=== PATIENT | female | born 1940 | race Caucasian/White ===

== ENCOUNTER 2020-08-06 12:44 | Inpatient (IN) | payer MEDICARE ==
[~2020-08-06] VITALS: Ht 152.4 cm; Wt 45.4 kg
[~2020-08-06 12:44] MED LIST: ALLOPURINOL100 MG PO; CARBIDOPA-LEVO1 EACH PO; CRESTOR10 MG PO; FLAX SEED PO; K DUR10 MEQ PO; LEVOTHYROXINE50 MCG PO; LEXAPRO10 MG PO; METFORMIN HCL500 MG PO; METOLAZONE5 MG PO; OXYBUTYNIN CHLOR5 M1 PO; PANTOPRAZOLE SO40 MG PO; PROBIOTIC PO; QUETIAPINE FUMA25 MG PO; [UNRECOGNIZED DRUG - OTHER] PO
[2020-08-06 13:51] LABS: BASOPHILS # (AUTO) 0.1 (0.0-0.1); BASOPHILS % 0.9 % (0.0-1.0); EOSINOPHILS # (AUTO) 0.5 (0.0-0.4); EOSINOPHILS % 5.6 % (0.0-6.0); HEMATOCRIT 38.3 % (34.2-44.1); HEMOGLOBIN 12.7 g/dL (12.0-16.0); LYMPHOCYTES # (AUTO) 2.6 (1.0-3.2); LYMPHOCYTES % 28.9 % (18.0-39.1); MEAN CORPUSCULAR HEMOGLOBIN 30.3 pg (28-32); MEAN CORPUSCULAR HGB CONC 33.2 g/dL (31-35); MEAN CORPUSCULAR VOLUME 91.4 fL (81-99); MONOCYTES # (AUTO) 0.6 (0.2-0.8); MONOCYTES % 6.5 % (4.4-11.3); NEUTROPHILS # (AUTO) 5.1 (2.1-6.9); NEUTROPHILS % 57.8 % (38.7-80.0); PLATELET COUNT 319 x10e3/uL (140-360); RED BLOOD COUNT 4.19 x10e6/uL (3.6-5.1); RED CELL DISTRIBUTION WIDTH 13.2 % (11.7-14.4)
[2020-08-06 14:15] LABS: CREATINE KINASE MB 0.6 ng/mL (0-5.0)
[2020-08-06 14:17] LABS: CLARITY,URINE SL CLOUDY (CLEAR); COLOR,URINE YELLOW (YELLOW); KETONES,URINE TRACE (NEGATIVE); LEUKOCYTE ESTERASE ,URINE NEGATIVE (NEGATIVE); NITRITE,URINE POSITIVE (NEGATIVE); PROTEIN,URINE DIPSTICK 2+ (NEGATIVE); URINE UROBILINOGEN 0.2 mg/dL (0.2 - 1)
[2020-08-06 14:27] LABS: BACTERIA,URINE MANY /HPF; EPITHELIAL CELLS,URINE RARE /LPF
[2020-08-06 14:31] LABS: ALBUMIN/GLOBULIN RATIO 0.9 (0.8-2.0); ANION GAP 22.4 mmol/L (8-16); CALCIUM 7.8 mg/dL (8.4-10.2); CREATININE, SERUM 1.31 mg/dL (0.57-1.11); POTASSIUM 3.4 mmol/L (3.5-5.1)
[2020-08-06] MEDS ORDERED: LIDOCAINE 4% PATCH TP PRN (15:15)
[2020-08-06] MEDS ORDERED: SIMETHICONE 80 MG CHEW PO PRN (15:15)
[2020-08-06] MEDS ORDERED: DOCUSATE SODIUM 100 MG CAP PO PRN (15:15)
[2020-08-06] MEDS ORDERED: ALBUTEROL/IPRATROPIUM 3 ML NEB NEB PRN (15:15)
[2020-08-06] MEDS ORDERED: HYDRALAZINE HCL 20 MG/ML VIAL IV PRN (15:15)
[2020-08-06] MEDS ORDERED: DEXTROSE 50% SYRINGE 50 ML IV PRN (15:15)
[2020-08-06] MEDS ORDERED: GUAIFENESIN/CODEINE 10 ML CUP PO PRN (15:15)
[2020-08-06] MEDS ORDERED: CHLORASEPTIC SPRAY 177 ML BTL MM PRN (15:15)
[2020-08-06] MEDS ORDERED: DIPHENHYDRAMINE HCL 25 MG CAP PO PRN (15:15)
[2020-08-06] MEDS ORDERED: POLYETHYLENE GLYCOL 3350 17 GM PACK PO PRN (15:15)
[2020-08-06] MEDS: SODIUM CHLORIDE 0.9% 1000ML 1,000 ML IV SCH (15:57)
[2020-08-06] MEDS: KETOROLAC TROMETHAMINE 30 MG/ML VIAL IV SCH ×2 (15:57→21:48)
[2020-08-06] MEDS: CEFTRIAXONE SOD 1 GM/NS 50 ML 50 ML IV SCH (16:00)
[2020-08-06] MEDS: ENOXAPARIN SOD INJ 40 MG/0.4 ML SYR SC SCH (16:00)
[2020-08-06 17:17] VITALS: BP 119/53
[2020-08-06 17:22] VITALS: BP 119/53
[2020-08-06 19:38] LABS: CREATINE KINASE MB 0.5 ng/mL (0-5.0)
[2020-08-06 20:00] VITALS: BP 102/52
[2020-08-06 23:31] VITALS: BP 102/52
[2020-08-07] VITALS (8 sets, daily range): BP systolic 93–120; BP diastolic 47–67
[2020-08-07] MEDS: SODIUM CHLORIDE 0.9% 1000ML 1,000 ML IV SCH ×2 (01:56→12:32)
[2020-08-07] MEDS: ONDANSETRON HCL INJ 2MG/ML 2ML 2 MG/ML VIAL IV PRN (01:56)
[2020-08-07] MEDS: MELATONIN 5 MG TABLET PO PRN ×2 (01:57→22:37)
[2020-08-07] MEDS: ACETAMINOPHEN 325 MG TAB PO PRN ×2 (01:57→10:59)
[2020-08-07] MEDS: KETOROLAC TROMETHAMINE 30 MG/ML VIAL IV SCH (06:37)
[2020-08-07 08:04] LABS: BASOPHILS # (AUTO) 0.1 (0.0-0.1); BASOPHILS % 1.1 % (0.0-1.0); EOSINOPHILS # (AUTO) 0.7 (0.0-0.4); EOSINOPHILS % 9.6 % (0.0-6.0); HEMATOCRIT 31.9 % (34.2-44.1); HEMOGLOBIN 10.5 g/dL (12.0-16.0); LYMPHOCYTES # (AUTO) 2.3 (1.0-3.2); LYMPHOCYTES % 29.7 % (18.0-39.1); MEAN CORPUSCULAR HEMOGLOBIN 30.3 pg (28-32); MEAN CORPUSCULAR HGB CONC 32.9 g/dL (31-35); MEAN CORPUSCULAR VOLUME 91.9 fL (81-99); MONOCYTES # (AUTO) 0.6 (0.2-0.8); MONOCYTES % 7.7 % (4.4-11.3); NEUTROPHILS # (AUTO) 3.9 (2.1-6.9); NEUTROPHILS % 51.8 % (38.7-80.0); PLATELET COUNT 277 x10e3/uL (140-360); RED BLOOD COUNT 3.47 x10e6/uL (3.6-5.1); RED CELL DISTRIBUTION WIDTH 13.2 % (11.7-14.4)
[2020-08-07 08:23] LABS: ALBUMIN 2.4 g/dL (3.5-5.0); ALBUMIN/GLOBULIN RATIO 0.9 (0.8-2.0); ANION GAP 17.9 mmol/L (8-16); CREATININE, SERUM 1.14 mg/dL (0.57-1.11); PHOSPHORUS 3.4 MG/DL (2.3-4.7)
[2020-08-07 08:27] LABS: CALCIUM 6.9 mg/dL (8.4-10.2); POTASSIUM 2.9 mmol/L (3.5-5.1)
[2020-08-07] MEDS: POTASSIUM CHLORIDE 20 MEQ TAB CR PO PRN (08:33)
[2020-08-07] MEDS: PANTOPRAZOLE SOD 40 MG TABEC PO SCH (08:33)
[2020-08-07 08:35] LABS: CREATINE KINASE MB 0.5 ng/mL (0-5.0)
[2020-08-07 08:50] LABS: MAGNESIUM 0.8 MG/DL (1.3-2.1)
[2020-08-07 09:13] LABS: THYROID STIMULATING HORMONE 2.961 uIU/mL (0.350-4.940)
[2020-08-07] MEDS ORDERED: NEXIUM40 MG PO (10:36)
[2020-08-07] MEDS ORDERED: VACEPA PO (10:36)
[2020-08-07] MEDS ORDERED: ASPIRIN81 MG PO (10:36)
[2020-08-07] MEDS ORDERED: HYDROXYZINE HCL25 MG PO (10:36)
[2020-08-07] MEDS ORDERED: ONDANSETRON2 MG/1 ML SL (10:36)
[2020-08-07] MEDS ORDERED: PROMETHAZINE HC25 M1 PO (10:36)
[2020-08-07] MEDS ORDERED: ULTRAM50 MG PO (10:36)
[2020-08-07] MEDS ORDERED: MELATONIN3 M3 SL (10:36)
[2020-08-07] MEDS ORDERED: LINZESS145 MCG PO (10:36)
[2020-08-07] MEDS ORDERED: STOOL SOFTNER PO (10:36)
[2020-08-07] MEDS ORDERED: DICYCLOMINE HCL20 MG PO (10:36)
[2020-08-07 12:00] LABS: ANION GAP 19.7 mmol/L (8-16); CALCIUM 7.1 mg/dL (8.4-10.2); CREATININE, SERUM 1.17 mg/dL (0.57-1.11); POTASSIUM 3.7 mmol/L (3.5-5.1)
[2020-08-07 12:04] LABS: MAGNESIUM 0.8 MG/DL (1.3-2.1)
[2020-08-07] MEDS ORDERED: MAGNESIUM SULFATE 2GM/50ML 50 ML IV ONE ×2 (13:15→22:15)
[2020-08-07] MEDS: CARBIDOPA/LEVODOPA 10/100 TAB PO SCH ×3 (13:26→21:18)
[2020-08-07] MEDS: MEGACE 400MG/ 10ML CUP PO SCH (13:26)
[2020-08-07] MEDS: HYDROCODONE/APAP 5MG-325MG TAB PO PRN ×2 (13:58→22:37)
[2020-08-07] MEDS: CEFTRIAXONE SOD 1 GM/NS 50 ML 50 ML IV SCH (14:00)
[2020-08-07] MEDS: DICYCLOMINE HCL 20 MG TAB PO SCH ×2 (14:00→21:18)
[2020-08-07] MEDS: MULTIVITAMINS- 12 INJECTION 10 ML, FOLIC ACID MDV 5 MG, THIAMINE HCL INJ 100 MG in SODI... IV SCH (16:49)
[2020-08-07] MEDS: ENOXAPARIN SOD INJ 40 MG/0.4 ML SYR SC SCH (17:03)
[2020-08-07] MEDS: SIMVASTATIN 40 MG TAB PO SCH (21:18)
[2020-08-07] MEDS ORDERED: MAGNESIUM SULFATE 2GM/50ML 25 ML IV ONE (22:30)
[2020-08-08] VITALS (8 sets, daily range): BP systolic 103–131; BP diastolic 42–64
[2020-08-08 06:28] LABS: BASOPHILS # (AUTO) 0.1 (0.0-0.1); EOSINOPHILS # (AUTO) 0.8 (0.0-0.4); EOSINOPHILS % 9.4 % (0.0-6.0); HEMATOCRIT 29.2 % (34.2-44.1); HEMOGLOBIN 9.5 g/dL (12.0-16.0); LYMPHOCYTES # (AUTO) 2.3 (1.0-3.2); LYMPHOCYTES % 27.7 % (18.0-39.1); MEAN CORPUSCULAR HEMOGLOBIN 30.1 pg (28-32); MEAN CORPUSCULAR HGB CONC 32.5 g/dL (31-35); MEAN CORPUSCULAR VOLUME 92.4 fL (81-99); MONOCYTES # (AUTO) 0.4 (0.2-0.8); MONOCYTES % 4.5 % (4.4-11.3); NEUTROPHILS # (AUTO) 4.8 (2.1-6.9); NEUTROPHILS % 56.9 % (38.7-80.0); PLATELET COUNT 247 x10e3/uL (140-360); RED BLOOD COUNT 3.16 x10e6/uL (3.6-5.1); RED CELL DISTRIBUTION WIDTH 13.2 % (11.7-14.4)
[2020-08-08] MEDS: MULTIVITAMINS- 12 INJECTION 10 ML, FOLIC ACID MDV 5 MG, THIAMINE HCL INJ 100 MG in SODI... IV SCH ×2 (07:02→16:30)
[2020-08-08] MEDS: LEVOTHYROXINE SODIUM 50 MCG TAB PO SCH (07:02)
[2020-08-08 07:06] LABS: ALBUMIN 2.3 g/dL (3.5-5.0); ALKALINE PHOSPHATASE 42 IU/L (40-150); ANION GAP 11.3 mmol/L (8-16); BLOOD UREA NITROGEN 29 mg/dL (7-26); BUN/CREATININE RATIO 26 (6-25); CALCIUM 7.1 mg/dL (8.4-10.2); CARBON DIOXIDE 25 mmol/L (22-29); CHLORIDE 103 mmol/L (98-107); CREATININE, SERUM 1.12 mg/dL (0.57-1.11); EST GLOMERULAR FILTRATION RATE 47 ML/MIN (60-); GLUCOSE 117 mg/dL (74-118); MAGNESIUM 1.4 MG/DL (1.3-2.1); PHOSPHORUS 2.1 MG/DL (2.3-4.7); POTASSIUM 3.3 mmol/L (3.5-5.1); SODIUM 136 mmol/L (136-145)
[2020-08-08 07:18] LABS: ALANINE AMINOTRANSFERASE < 6 IU/L (0-55)
[2020-08-08] MEDS: PANTOPRAZOLE SOD 40 MG TABEC PO SCH (08:30)
[2020-08-08] MEDS: LINACLOTIDE 145 MCG CAPSULE PO SCH (08:30)
[2020-08-08] MEDS: OXYBUTYNIN CHLORIDE XL 5 MG TAB PO SCH (08:31)
[2020-08-08] MEDS: MEGACE 400MG/ 10ML CUP PO SCH (08:31)
[2020-08-08] MEDS: DICYCLOMINE HCL 20 MG TAB PO SCH ×3 (08:31→20:31)
[2020-08-08] MEDS: ASPIRIN 81 MG CHEW TAB PO SCH (08:31)
[2020-08-08] MEDS: CARBIDOPA/LEVODOPA 10/100 TAB PO SCH ×4 (08:31→20:31)
[2020-08-08] MEDS ORDERED: QUETIAPINE FUMARATE 25 MG TAB PO SCH (09:00)
[2020-08-08] MEDS: CEFTRIAXONE SOD 1 GM/NS 50 ML 50 ML IV SCH (14:03)
[2020-08-08] MEDS: POTASSIUM CHLORIDE 20 MEQ TAB CR PO PRN (14:22)
[2020-08-08] MEDS: ENOXAPARIN SOD INJ 40 MG/0.4 ML SYR SC SCH (17:12)
[2020-08-08] MEDS: SIMVASTATIN 40 MG TAB PO SCH (20:31)
[2020-08-08] MEDS: MELATONIN 5 MG TABLET PO PRN (20:32)
[2020-08-08] MEDS: HYDROCODONE/APAP 5MG-325MG TAB PO PRN (20:39)
[2020-08-09] VITALS (7 sets, daily range): BP systolic 100–134; BP diastolic 55–83
[2020-08-09] MEDS: MULTIVITAMINS- 12 INJECTION 10 ML, FOLIC ACID MDV 5 MG, THIAMINE HCL INJ 100 MG in SODI... IV SCH ×2 (05:41→19:56)
[2020-08-09] MEDS: LEVOTHYROXINE SODIUM 50 MCG TAB PO SCH (06:00)
[2020-08-09] MEDS: ONDANSETRON HCL INJ 2MG/ML 2ML 2 MG/ML VIAL IV PRN (08:47)
[2020-08-09] MEDS: DICYCLOMINE HCL 20 MG TAB PO SCH ×3 (09:00→20:33)
[2020-08-09] MEDS: MEGACE 400MG/ 10ML CUP PO SCH (09:00)
[2020-08-09] MEDS: CARBIDOPA/LEVODOPA 10/100 TAB PO SCH ×4 (09:00→20:33)
[2020-08-09] MEDS: LINACLOTIDE 145 MCG CAPSULE PO SCH (10:30)
[2020-08-09] MEDS: ASPIRIN 81 MG CHEW TAB PO SCH (10:30)
[2020-08-09] MEDS: PANTOPRAZOLE SOD 40 MG TABEC PO SCH (10:30)
[2020-08-09] MEDS: OXYBUTYNIN CHLORIDE XL 5 MG TAB PO SCH (10:30)
[2020-08-09] MEDS: CEFTRIAXONE SOD 1 GM/NS 50 ML 50 ML IV SCH (15:00)
[2020-08-09] MEDS: ENOXAPARIN SOD INJ 40 MG/0.4 ML SYR SC SCH (17:02)
[2020-08-09] MEDS: SIMVASTATIN 40 MG TAB PO SCH (20:33)
[2020-08-09] MEDS ORDERED: OLANZAPINE 5 MG TAB PO SCH (21:00)
[2020-08-09] MEDS: MELATONIN 5 MG TABLET PO PRN (23:41)
[2020-08-10 00:24] VITALS: BP 96/43
[2020-08-10] MEDS: LEVOTHYROXINE SODIUM 50 MCG TAB PO SCH (05:52)
[2020-08-10 06:27] VITALS: BP 121/66
[2020-08-10 07:39] LABS: BASOPHILS # (AUTO) 0.1 (0.0-0.1); BASOPHILS % 0.8 % (0.0-1.0); EOSINOPHILS # (AUTO) 0.1 (0.0-0.4); EOSINOPHILS % 1.4 % (0.0-6.0); HEMOGLOBIN 10.2 g/dL (12.0-16.0); LYMPHOCYTES # (AUTO) 2.3 (1.0-3.2); LYMPHOCYTES % 25.7 % (18.0-39.1); MEAN CORPUSCULAR HGB CONC 31.9 g/dL (31-35); MEAN CORPUSCULAR VOLUME 94.1 fL (81-99); MONOCYTES # (AUTO) 0.6 (0.2-0.8); MONOCYTES % 6.6 % (4.4-11.3); NEUTROPHILS # (AUTO) 5.9 (2.1-6.9); NEUTROPHILS % 65.2 % (38.7-80.0); PLATELET COUNT 242 x10e3/uL (140-360); RED CELL DISTRIBUTION WIDTH 13.9 % (11.7-14.4)
[2020-08-10] MEDS: PANTOPRAZOLE SOD 40 MG TABEC PO SCH (07:49)
[2020-08-10] MEDS: LINACLOTIDE 145 MCG CAPSULE PO SCH (07:49)
[2020-08-10 07:50] VITALS: BP 106/73
[2020-08-10 07:59] VITALS: BP 106/73
[2020-08-10 08:08] LABS: ALANINE AMINOTRANSFERASE 7 IU/L (0-55); ALBUMIN 2.4 g/dL (3.5-5.0); ALBUMIN/GLOBULIN RATIO 0.9 (0.8-2.0); ALKALINE PHOSPHATASE 39 IU/L (40-150); ANION GAP 10.2 mmol/L (8-16); BLOOD UREA NITROGEN 15 mg/dL (7-26); BUN/CREATININE RATIO 18 (6-25); CALCIUM 8.1 mg/dL (8.4-10.2); CARBON DIOXIDE 28 mmol/L (22-29); CHLORIDE 98 mmol/L (98-107); CREATININE, SERUM 0.85 mg/dL (0.57-1.11); EST GLOMERULAR FILTRATION RATE > 60 ML/MIN (60-); GLUCOSE 138 mg/dL (74-118); PHOSPHORUS 2.5 MG/DL (2.3-4.7); POTASSIUM 4.2 mmol/L (3.5-5.1); SODIUM 132 mmol/L (136-145)
[2020-08-10] MEDS: MULTIVITAMINS- 12 INJECTION 10 ML, FOLIC ACID MDV 5 MG, THIAMINE HCL INJ 100 MG in SODI... IV SCH (09:48)
[2020-08-10] MEDS: MEGACE 400MG/ 10ML CUP PO SCH (09:48)
[2020-08-10] MEDS: DICYCLOMINE HCL 20 MG TAB PO SCH (09:48)
[2020-08-10] MEDS: ASPIRIN 81 MG CHEW TAB PO SCH (09:48)
[2020-08-10] MEDS: OXYBUTYNIN CHLORIDE XL 5 MG TAB PO SCH (09:48)
[2020-08-10] MEDS: CARBIDOPA/LEVODOPA 10/100 TAB PO SCH ×2 (09:51→12:26)
[2020-08-10 11:49] VITALS: BP 105/48
[2020-08-10] MEDS ORDERED: MAGNESIUM SULFATE 2GM/50ML 50 ML IV ONE (12:30)
[2020-08-10] MEDS ORDERED: ONDANSETRON HCL 4 MG ORAL DISINTEGRATING TAB PO PRN (12:45)
[2020-08-10 15:48] VITALS: BP 97/58
== END 2020-08-10 17:45 | disposition home health service (06) | DRG 682 ==
LOC: ER 13:01 → ERHOLD 16:30 → MED/SURG3 17:00 → OBSVTOIN 08-08 12:18
PROVIDERS: ADMIT Internal Medicine; ATTEND Internal Medicine
DX: N17.9 Acute kidney failure, unspecified (principal); E43 Unspecified severe protein-calorie malnutrition; I71.02 Dissection of abdominal aorta; N39.0 Urinary tract infection, site not specified; Z68.1 Body mass index [BMI] 19.9 or less, adult; F31.32 Bipolar disorder, current episode depressed, moderate; R62.7 Adult failure to thrive; G20 Parkinson's disease; E86.0 Dehydration; N32.81 Overactive bladder; G89.29 Other chronic pain; E03.9 Hypothyroidism, unspecified; Z20.822 Contact with and (suspected) exposure to COVID-19; M48.061 Spinal stenosis, lumbar region without neurogenic claudication; Z91.14 Patient's other noncompliance with medication regimen
CPT/HCPCS: 36415; 71045; 72131; 80048; 80053; 81001; 82550; 82553; 82948; 83036; 83735; 84100; 84443; 84484; 85025; 87086; 97139; 99251; 99284; G0378; J0696; J1650; J1885; J2405; J3411; J3475; J7030; U0002

== ENCOUNTER 2020-08-21 16:34 | Inpatient (IN) | payer MEDICARE ==
[~2020-08-21] VITALS: Ht 152.4 cm; Wt 45.4 kg
[~2020-08-21 16:34] MED LIST changes: +ASPIRIN81 MG PO; +DICYCLOMINE HCL20 MG PO; +HYDROXYZINE HCL25 MG PO; +LINZESS145 MCG PO; +MELATONIN3 M3 SL; +NEXIUM40 MG PO; +ONDANSETRON2 MG/1 ML SL; +PROMETHAZINE HC25 M1 PO; +STOOL SOFTNER PO; +ULTRAM50 MG PO; +VACEPA PO
[2020-08-21 17:41] LABS: BASOPHILS % 0.3 % (0.0-1.0); EOSINOPHILS # (AUTO) 0.1 (0.0-0.4); EOSINOPHILS % 0.6 % (0.0-6.0); HEMATOCRIT 28.5 % (34.2-44.1); HEMOGLOBIN 9.3 g/dL (12.0-16.0); LYMPHOCYTES # (AUTO) 1.2 (1.0-3.2); LYMPHOCYTES % 10.6 % (18.0-39.1); MEAN CORPUSCULAR HEMOGLOBIN 30.3 pg (28-32); MEAN CORPUSCULAR HGB CONC 32.6 g/dL (31-35); MEAN CORPUSCULAR VOLUME 92.8 fL (81-99); MONOCYTES # (AUTO) 0.7 (0.2-0.8); MONOCYTES % 6.1 % (4.4-11.3); PLATELET COUNT 389 x10e3/uL (140-360); RED BLOOD COUNT 3.07 x10e6/uL (3.6-5.1)
[2020-08-21 18:03] LABS: ALBUMIN 2.6 g/dL (3.5-5.0); ALBUMIN/GLOBULIN RATIO 0.7 (0.8-2.0); ALKALINE PHOSPHATASE 55 IU/L (40-150); ANION GAP 16.2 mmol/L (8-16); BLOOD UREA NITROGEN 19 mg/dL (7-26); BUN/CREATININE RATIO 23 (6-25); CALCIUM 8.9 mg/dL (8.4-10.2); CARBON DIOXIDE 24 mmol/L (22-29); CHLORIDE 97 mmol/L (98-107); CREATINE KINASE 19 IU/L (29-168); CREATININE, SERUM 0.84 mg/dL (0.57-1.11); EST GLOMERULAR FILTRATION RATE > 60 ML/MIN (60-); GLUCOSE 87 mg/dL (74-118); POTASSIUM 3.2 mmol/L (3.5-5.1); SODIUM 134 mmol/L (136-145)
[2020-08-21 18:05] LABS: ALANINE AMINOTRANSFERASE < 6 IU/L (0-55)
[2020-08-21] MEDS ORDERED: CEFEPIME 1GM/NS 0.9% 50 ML 50 ML IV STA (18:53)
[2020-08-21] MEDS ORDERED: VANCOMYCIN 1GM/NS 250 ML 250 ML IV STA (18:53)
[2020-08-21 20:12] LABS: CLARITY,URINE SL CLOUDY (CLEAR); COLOR,URINE YELLOW (YELLOW); KETONES,URINE TRACE (NEGATIVE); LEUKOCYTE ESTERASE ,URINE SMALL (NEGATIVE); NITRITE,URINE NEGATIVE (NEGATIVE); PROTEIN,URINE DIPSTICK 1+ (NEGATIVE); URINE UROBILINOGEN 0.2 mg/dL (0.2 - 1)
[2020-08-21 20:25] LABS: BACTERIA,URINE MODERATE /HPF
[2020-08-21 23:00] VITALS: BP 104/51
[2020-08-22] VITALS (8 sets, daily range): BP systolic 104–123; BP diastolic 51–57
[2020-08-22] MEDS ORDERED: ACETAMINOPHEN 325 MG TAB PO PRN (01:30)
[2020-08-22] MEDS ORDERED: HYDRALAZINE HCL 20 MG/ML VIAL IV PRN (01:30)
[2020-08-22] MEDS ORDERED: ONDANSETRON HCL INJ 2MG/ML 2ML 2 MG/ML VIAL IV PRN (01:30)
[2020-08-22] MEDS ORDERED: POLYETHYLENE GLYCOL 3350 17 GM PACK PO PRN (01:30)
[2020-08-22] MEDS: OLANZAPINE 5 MG TAB PO SCH ×2 (01:30→03:41)
[2020-08-22 09:50] LABS: BASOPHILS # (AUTO) 0.1 (0.0-0.1); BASOPHILS % 0.5 % (0.0-1.0); EOSINOPHILS # (AUTO) 0.2 (0.0-0.4); EOSINOPHILS % 2.6 % (0.0-6.0); HEMATOCRIT 29.2 % (34.2-44.1); HEMOGLOBIN 9.5 g/dL (12.0-16.0); LYMPHOCYTES # (AUTO) 1.7 (1.0-3.2); LYMPHOCYTES % 18.2 % (18.0-39.1); MEAN CORPUSCULAR HEMOGLOBIN 29.8 pg (28-32); MEAN CORPUSCULAR HGB CONC 32.5 g/dL (31-35); MEAN CORPUSCULAR VOLUME 91.5 fL (81-99); MONOCYTES % 10.8 % (4.4-11.3); NEUTROPHILS # (AUTO) 6.2 (2.1-6.9); NEUTROPHILS % 67.7 % (38.7-80.0); PLATELET COUNT 333 x10e3/uL (140-360); RED BLOOD COUNT 3.19 x10e6/uL (3.6-5.1); RED CELL DISTRIBUTION WIDTH 14.8 % (11.7-14.4)
[2020-08-22] MEDS: FAMOTIDINE 20 MG TAB PO SCH ×2 (10:00→16:30)
[2020-08-22] MEDS: DOCUSATE SODIUM 100 MG CAP PO SCH ×2 (10:00→16:42)
[2020-08-22 10:20] LABS: CHOL/HDL RATIO 1.8 (3.0-3.6); PHOSPHORUS 2.8 MG/DL (2.3-4.7)
[2020-08-22 10:42] LABS: FERRITIN 122.51 ng/mL (4.63-204.00)
[2020-08-22 10:54] LABS: ALANINE AMINOTRANSFERASE 8 IU/L (0-55); ALBUMIN 2.3 g/dL (3.5-5.0); ALBUMIN/GLOBULIN RATIO 0.7 (0.8-2.0); ALKALINE PHOSPHATASE 48 IU/L (40-150); BLOOD UREA NITROGEN 18 mg/dL (7-26); BUN/CREATININE RATIO 24 (6-25); CALCIUM 8.5 mg/dL (8.4-10.2); CARBON DIOXIDE 25 mmol/L (22-29); CHLORIDE 98 mmol/L (98-107); CREATININE, SERUM 0.74 mg/dL (0.57-1.11); EST GLOMERULAR FILTRATION RATE > 60 ML/MIN (60-); GLUCOSE 71 mg/dL (74-118); SODIUM 134 mmol/L (136-145)
[2020-08-22] MEDS ORDERED: MAGNESIUM SULFATE 2GM/50ML 50 ML IV ONE ×2 (12:15→14:15)
[2020-08-22] MEDS ORDERED: LORAZEPAM INJ 2 MG/ML VIAL IV NR ×2 (12:30→14:30)
[2020-08-22] MEDS ORDERED: SODIUM CHLORIDE 0.9% 250ML 250 ML ONE (12:47)
[2020-08-22] MEDS ORDERED: DICYCLOMINE HCL 20 MG TAB PO PRN (14:45)
[2020-08-22] MEDS ORDERED: PROMETHAZINE 12.5MG/ NACL 0.9% 12.5 MG/50 ML BAG IV PRN (14:45)
[2020-08-22] MEDS ORDERED: HYDROXYZINE HCL 25 MG TAB PO PRN (14:45)
[2020-08-22] MEDS: VASCEPA PO SCH (16:42)
[2020-08-22] MEDS ORDERED: POTASSIUM CHLORIDE 20 MEQ TAB CR PO ONE (17:00)
[2020-08-22] MEDS: CARBIDOPA/LEVODOPA 10/100 TAB PO SCH ×2 (17:07→20:13)
[2020-08-22] MEDS: SIMVASTATIN 20 MG TAB PO SCH (20:13)
[2020-08-22] MEDS: MELATONIN 3 MG TAB PO SCH (20:13)
[2020-08-23] VITALS (8 sets, daily range): BP systolic 104–129; BP diastolic 44–63
[2020-08-23 06:02] LABS: BASOPHILS % 0.5 % (0.0-1.0); EOSINOPHILS # (AUTO) 0.3 (0.0-0.4); EOSINOPHILS % 3.9 % (0.0-6.0); HEMATOCRIT 26.9 % (34.2-44.1); HEMOGLOBIN 8.9 g/dL (12.0-16.0); LYMPHOCYTES # (AUTO) 1.6 (1.0-3.2); LYMPHOCYTES % 18.6 % (18.0-39.1); MEAN CORPUSCULAR HEMOGLOBIN 30.1 pg (28-32); MEAN CORPUSCULAR HGB CONC 33.1 g/dL (31-35); MEAN CORPUSCULAR VOLUME 90.9 fL (81-99); MONOCYTES # (AUTO) 0.8 (0.2-0.8); MONOCYTES % 9.5 % (4.4-11.3); NEUTROPHILS # (AUTO) 5.9 (2.1-6.9); PLATELET COUNT 331 x10e3/uL (140-360); RED BLOOD COUNT 2.96 x10e6/uL (3.6-5.1); RED CELL DISTRIBUTION WIDTH 14.8 % (11.7-14.4)
[2020-08-23] MEDS: LEVOTHYROXINE SODIUM 50 MCG TAB PO SCH (06:12)
[2020-08-23 06:36] LABS: ANION GAP 13.5 mmol/L (8-16); BLOOD UREA NITROGEN 22 mg/dL (7-26); BUN/CREATININE RATIO 29 (6-25); CALCIUM 8.3 mg/dL (8.4-10.2); CARBON DIOXIDE 25 mmol/L (22-29); CHLORIDE 100 mmol/L (98-107); CREATININE, SERUM 0.77 mg/dL (0.57-1.11); EST GLOMERULAR FILTRATION RATE > 60 ML/MIN (60-); GLUCOSE 167 mg/dL (74-118); POTASSIUM 3.5 mmol/L (3.5-5.1); SODIUM 135 mmol/L (136-145)
[2020-08-23] MEDS: FAMOTIDINE 20 MG TAB PO SCH ×2 (06:42→16:41)
[2020-08-23] MEDS: LINACLOTIDE 145 MCG CAPSULE PO SCH (06:42)
[2020-08-23] MEDS ORDERED: MAGNESIUM SULFATE 2GM/50ML 50 ML IV ONE (08:45)
[2020-08-23] MEDS: VASCEPA PO SCH ×2 (09:00→16:42)
[2020-08-23] MEDS: ASPIRIN 81 MG CHEW TAB PO SCH (09:12)
[2020-08-23] MEDS: DOCUSATE SODIUM 100 MG CAP PO SCH ×3 (09:12→23:21)
[2020-08-23] MEDS: METOLAZONE 5 MG TAB PO SCH (09:13)
[2020-08-23] MEDS: CARBIDOPA/LEVODOPA 10/100 TAB PO SCH ×4 (09:13→20:22)
[2020-08-23] MEDS: QUETIAPINE FUMARATE 25 MG TAB PO SCH (09:13)
[2020-08-23] MEDS: IRON SUCROSE 100 MG in SODIUM CHLORIDE 0.9% 100 ML 100 ML IV SCH (09:39)
[2020-08-23] MEDS: OXYBUTYNIN CHLORIDE XL 5 MG TAB PO SCH (09:39)
[2020-08-23] MEDS ORDERED: MAGNESIUM SULF 1GRAM/DEXTROSE 100 ML IV ONE (10:45)
[2020-08-23] MEDS ORDERED: CEFTRIAXONE SOD 1 GM/NS 50 ML 50 ML IV SCH (16:00)
[2020-08-23] MEDS: TRAMADOL HCL 50 MG TAB PO PRN ×2 (16:35→17:22)
[2020-08-23] MEDS: SIMVASTATIN 20 MG TAB PO SCH (20:22)
[2020-08-23] MEDS: MELATONIN 3 MG TAB PO SCH (20:22)
[2020-08-23] MEDS: OLANZAPINE 5 MG TAB PO SCH (20:22)
[2020-08-23] MEDS ORDERED: AZITHROMYCIN 500MG/NS 250 ML 250 ML IV ONE (22:15)
[2020-08-23] MEDS ORDERED: METFORMIN HCL 500 MG TAB CR PO ONE (22:15)
[2020-08-23] MEDS ORDERED: AZITHROMYCIN 500MG/NS 250 ML 250 ML IV SCH (22:15)
[2020-08-23] MEDS ORDERED: CYANOCOBALAMIN INJ 1,000 MCG/ML VIAL IM ONE (22:15)
[2020-08-24] VITALS (8 sets, daily range): BP systolic 86–123; BP diastolic 51–96
[2020-08-24] MEDS: LEVOTHYROXINE SODIUM 50 MCG TAB PO SCH (06:00)
[2020-08-24 07:35] LABS: BASOPHILS # (AUTO) 0.1 (0.0-0.1); BASOPHILS % 0.5 % (0.0-1.0); EOSINOPHILS # (AUTO) 0.4 (0.0-0.4); EOSINOPHILS % 3.4 % (0.0-6.0); HEMATOCRIT 33.1 % (34.2-44.1); HEMOGLOBIN 10.6 g/dL (12.0-16.0); LYMPHOCYTES # (AUTO) 1.2 (1.0-3.2); LYMPHOCYTES % 10.7 % (18.0-39.1); MEAN CORPUSCULAR HEMOGLOBIN 29.4 pg (28-32); MEAN CORPUSCULAR VOLUME 91.9 fL (81-99); MONOCYTES % 8.7 % (4.4-11.3); NEUTROPHILS # (AUTO) 8.7 (2.1-6.9); NEUTROPHILS % 76.4 % (38.7-80.0); PLATELET COUNT 352 x10e3/uL (140-360); RED CELL DISTRIBUTION WIDTH 14.9 % (11.7-14.4)
[2020-08-24 07:57] LABS: ANION GAP 17.7 mmol/L (8-16); CALCIUM 8.9 mg/dL (8.4-10.2); CREATININE, SERUM 0.9 mg/dL (0.57-1.11); PHOSPHORUS 2.7 MG/DL (2.3-4.7); POTASSIUM 3.7 mmol/L (3.5-5.1)
[2020-08-24] MEDS: LINACLOTIDE 145 MCG CAPSULE PO SCH (08:10)
[2020-08-24] MEDS: METFORMIN HCL 500 MG TAB PO SCH (08:10)
[2020-08-24] MEDS: FAMOTIDINE 20 MG TAB PO SCH ×2 (08:10→17:19)
[2020-08-24] MEDS: VASCEPA PO SCH ×2 (09:00→15:12)
[2020-08-24] MEDS: IRON SUCROSE 100 MG in SODIUM CHLORIDE 0.9% 100 ML 100 ML IV SCH (09:30)
[2020-08-24] MEDS: METOLAZONE 5 MG TAB PO SCH (09:30)
[2020-08-24] MEDS: QUETIAPINE FUMARATE 25 MG TAB PO SCH (09:30)
[2020-08-24] MEDS: DOCUSATE SODIUM 100 MG CAP PO SCH ×3 (09:30→22:24)
[2020-08-24] MEDS: ASPIRIN 81 MG CHEW TAB PO SCH (09:30)
[2020-08-24] MEDS: CARBIDOPA/LEVODOPA 10/100 TAB PO SCH ×4 (09:30→22:24)
[2020-08-24] MEDS: OXYBUTYNIN CHLORIDE XL 5 MG TAB PO SCH (09:30)
[2020-08-24] MEDS: TRAMADOL HCL 50 MG TAB PO PRN ×2 (09:45→22:37)
[2020-08-24] MEDS: POTASSIUM CHLORIDE 10MEQ EA PO SCH ×2 (13:04→17:19)
[2020-08-24] MEDS: FUROSEMIDE INJ 10 MG/ML 4 ML VIAL IV SCH ×2 (13:04→17:19)
[2020-08-24] MEDS: MELATONIN 3 MG TAB PO SCH (22:24)
[2020-08-24] MEDS: SIMVASTATIN 20 MG TAB PO SCH (22:24)
[2020-08-24] MEDS: OLANZAPINE 5 MG TAB PO SCH (22:24)
[2020-08-25] VITALS (8 sets, daily range): BP systolic 85–142; BP diastolic 43–82
[2020-08-25] MEDS: LEVOTHYROXINE SODIUM 50 MCG TAB PO SCH (05:17)
[2020-08-25] MEDS: TRAMADOL HCL 50 MG TAB PO PRN ×2 (06:26→14:00)
[2020-08-25 07:12] LABS: BASOPHILS # (AUTO) 0.1 (0.0-0.1); BASOPHILS % 0.9 % (0.0-1.0); EOSINOPHILS # (AUTO) 0.4 (0.0-0.4); EOSINOPHILS % 5.1 % (0.0-6.0); HEMATOCRIT 29.6 % (34.2-44.1); HEMOGLOBIN 9.5 g/dL (12.0-16.0); LYMPHOCYTES # (AUTO) 2.7 (1.0-3.2); LYMPHOCYTES % 31.6 % (18.0-39.1); MEAN CORPUSCULAR HEMOGLOBIN 29.4 pg (28-32); MEAN CORPUSCULAR HGB CONC 32.1 g/dL (31-35); MEAN CORPUSCULAR VOLUME 91.6 fL (81-99); MONOCYTES # (AUTO) 1.2 (0.2-0.8); MONOCYTES % 13.4 % (4.4-11.3); NEUTROPHILS # (AUTO) 4.2 (2.1-6.9); NEUTROPHILS % 48.8 % (38.7-80.0); PLATELET COUNT 367 x10e3/uL (140-360); RED BLOOD COUNT 3.23 x10e6/uL (3.6-5.1)
[2020-08-25 07:31] LABS: ANION GAP 15.9 mmol/L (8-16); CALCIUM 8.6 mg/dL (8.4-10.2); CREATININE, SERUM 1.25 mg/dL (0.57-1.11); POTASSIUM 3.9 mmol/L (3.5-5.1)
[2020-08-25] MEDS: VASCEPA PO SCH ×2 (07:50→16:32)
[2020-08-25] MEDS ORDERED: SEROQUEL25 MG PO (08:36)
[2020-08-25] MEDS ORDERED: NITROFURANTOIN100 M1 PO (08:36)
[2020-08-25] MEDS ORDERED: FUROSEMIDE40 MG PO (08:36)
[2020-08-25] MEDS ORDERED: K DUR10 MEQ PO (08:36)
[2020-08-25] MEDS ORDERED: METOLAZONE5 MG PO (08:52)
[2020-08-25] MEDS: METFORMIN HCL 500 MG TAB PO SCH (09:18)
[2020-08-25] MEDS: FAMOTIDINE 20 MG TAB PO SCH ×2 (09:18→16:32)
[2020-08-25] MEDS: ASPIRIN 81 MG CHEW TAB PO SCH (09:18)
[2020-08-25] MEDS: LINACLOTIDE 145 MCG CAPSULE PO SCH (09:18)
[2020-08-25] MEDS: OXYBUTYNIN CHLORIDE XL 5 MG TAB PO SCH (09:18)
[2020-08-25] MEDS: NITROFURANTOIN MACROCRYSTALS 100 MG CAP PO SCH ×2 (09:18→16:32)
[2020-08-25] MEDS: CARBIDOPA/LEVODOPA 10/100 TAB PO SCH ×4 (09:18→20:12)
[2020-08-25] MEDS: IRON SUCROSE 100 MG in SODIUM CHLORIDE 0.9% 100 ML 100 ML IV SCH (09:18)
[2020-08-25] MEDS: DOCUSATE SODIUM 100 MG CAP PO SCH ×3 (09:18→20:12)
[2020-08-25] MEDS: QUETIAPINE FUMARATE 25 MG TAB PO SCH (09:19)
[2020-08-25] MEDS: FUROSEMIDE 40 MG TAB PO SCH (14:21)
[2020-08-25] MEDS ORDERED: OLANZAPINE 5 MG TAB PO PRN (15:45)
[2020-08-25] MEDS: METOLAZONE 5 MG TAB PO SCH (16:32)
[2020-08-25] MEDS: POTASSIUM CHLORIDE 10MEQ EA PO SCH (17:00)
[2020-08-25] MEDS: MELATONIN 3 MG TAB PO SCH (20:12)
[2020-08-25] MEDS: SIMVASTATIN 20 MG TAB PO SCH (20:12)
[2020-08-25] MEDS ORDERED: OLANZAPINE 5 MG TAB PO SCH (21:00)
[2020-08-26] VITALS: BP 111/65
[2020-08-26 04:00] VITALS: BP 130/60
[2020-08-26] MEDS: LEVOTHYROXINE SODIUM 50 MCG TAB PO SCH (06:00)
[2020-08-26 06:01] LABS: BASOPHILS # (AUTO) 0.1 (0.0-0.1); BASOPHILS % 1.2 % (0.0-1.0); EOSINOPHILS # (AUTO) 0.5 (0.0-0.4); HEMOGLOBIN 10.9 g/dL (12.0-16.0); LYMPHOCYTES # (AUTO) 1.3 (1.0-3.2); LYMPHOCYTES % 10.6 % (18.0-39.1); MEAN CORPUSCULAR HEMOGLOBIN 29.6 pg (28-32); MEAN CORPUSCULAR HGB CONC 32.1 g/dL (31-35); MEAN CORPUSCULAR VOLUME 92.4 fL (81-99); MONOCYTES # (AUTO) 1.1 (0.2-0.8); MONOCYTES % 9.2 % (4.4-11.3); NEUTROPHILS % 74.6 % (38.7-80.0); PLATELET COUNT 384 x10e3/uL (140-360); RED BLOOD COUNT 3.68 x10e6/uL (3.6-5.1); RED CELL DISTRIBUTION WIDTH 14.9 % (11.7-14.4)
[2020-08-26] MEDS ORDERED: COREG3.125 MG PO (06:37)
[2020-08-26] MEDS ORDERED: LISINOPRIL2.5 MG PO (06:37)
[2020-08-26 07:19] LABS: BLOOD UREA NITROGEN 28 mg/dL (7-26); BUN/CREATININE RATIO 32 (6-25); CARBON DIOXIDE 22 mmol/L (22-29); CHLORIDE 97 mmol/L (98-107); CREATININE, SERUM 0.87 mg/dL (0.57-1.11); EST GLOMERULAR FILTRATION RATE > 60 ML/MIN (60-); GLUCOSE 110 mg/dL (74-118); SODIUM 133 mmol/L (136-145)
[2020-08-26 07:53] VITALS: BP 119/64
[2020-08-26] MEDS ORDERED: ONDANSETRON HCL 4 MG ORAL DISINTEGRATING TAB PO PRN (08:00)
[2020-08-26 08:07] VITALS: BP 119/64
[2020-08-26] MEDS ORDERED: CARVEDILOL 3.125 MG TAB PO SCH ×2 (09:00)
[2020-08-26] MEDS: VASCEPA PO SCH (09:00)
[2020-08-26] MEDS: LINACLOTIDE 145 MCG CAPSULE PO SCH (10:03)
[2020-08-26] MEDS: FAMOTIDINE 20 MG TAB PO SCH (10:03)
[2020-08-26] MEDS: ASPIRIN 81 MG CHEW TAB PO SCH (10:03)
[2020-08-26] MEDS: METFORMIN HCL 500 MG TAB PO SCH (10:03)
[2020-08-26] MEDS: DOCUSATE SODIUM 100 MG CAP PO SCH (10:03)
[2020-08-26] MEDS: FUROSEMIDE 40 MG TAB PO SCH (10:04)
[2020-08-26] MEDS: OXYBUTYNIN CHLORIDE XL 5 MG TAB PO SCH (10:04)
[2020-08-26] MEDS: POTASSIUM CHLORIDE 10MEQ EA PO SCH (10:04)
[2020-08-26] MEDS: CARBIDOPA/LEVODOPA 10/100 TAB PO SCH (10:05)
[2020-08-26] MEDS: METOLAZONE 5 MG TAB PO SCH (10:05)
[2020-08-26] MEDS: NITROFURANTOIN MACROCRYSTALS 100 MG CAP PO SCH (10:05)
[2020-08-26] MEDS ORDERED: LISINOPRIL 2.5 MG TAB PO SCH (11:00)
[2020-08-26 11:18] VITALS: BP 84/62
== END 2020-08-26 13:44 | disposition home health service (06) | DRG 871 ==
LOC: ER 16:40 → ERHOLD 20:04 → MED/SURG2 22:58
PROVIDERS: ADMIT Internal Medicine; ATTEND Internal Medicine
DX: A41.9 Sepsis, unspecified organism (principal); J69.0 Pneumonitis due to inhalation of food and vomit; G93.41 Metabolic encephalopathy; E43 Unspecified severe protein-calorie malnutrition; I71.02 Dissection of abdominal aorta; I50.23 Acute on chronic systolic (congestive) heart failure; I48.20 Chronic atrial fibrillation, unspecified; Z68.1 Body mass index [BMI] 19.9 or less, adult; E87.1 Hypo-osmolality and hyponatremia; N17.9 Acute kidney failure, unspecified; N39.0 Urinary tract infection, site not specified; E31.9 Polyglandular dysfunction, unspecified; E87.6 Hypokalemia; F03.90 Unspecified dementia, unspecified severity, without behavioral disturbance, psychotic disturbance, mood disturbance, and anxiety; Z20.822 Contact with and (suspected) exposure to COVID-19; R62.7 Adult failure to thrive; G20 Parkinson's disease; E86.0 Dehydration; M48.00 Spinal stenosis, site unspecified; M47.9 Spondylosis, unspecified; E03.9 Hypothyroidism, unspecified; Z91.14 Patient's other noncompliance with medication regimen; E83.42 Hypomagnesemia; D50.9 Iron deficiency anemia, unspecified; I44.7 Left bundle-branch block, unspecified; K21.9 Gastro-esophageal reflux disease without esophagitis; N18.30 Chronic kidney disease, stage 3 unspecified; Z90.49 Acquired absence of other specified parts of digestive tract; E11.22 Type 2 diabetes mellitus with diabetic chronic kidney disease
CPT/HCPCS: 36415; 70450; 71045; 71250; 74230; 80048; 80053; 80061; 81001; 82550; 82553; 82607; 82728; 82746; 82948; 83540; 83605; 83735; 83880; 84100; 84466; 84484; 85025; 85045; 87040; 87086; 87186; 93005; 93306; 97139; 99284; J0456; J0692; J0696; J1756; J1940; J3370; J3420; J3475; J7050; U0002